=== PATIENT | female | born 1960 | race Caucasian/White ===

== ENCOUNTER → 2019-09-03 11:28 | Outpatient (CLI) | payer BC, SELFPAY ==
--- NOTE | ~2019-09-03 | MM_ITS ---
EXAMINATION: MM screening [facility] BI w nikos HISTORY: Screening mammogram TECHNIQUE: Craniocaudal and mediolateral oblique 3-D tomosynthesis images were obtained and synthetic 2-D images were generated. CAD analysis was submitted and interpreted. COMPARISON: Comparison to multiple prior studies sequentially, with oldest reviewed study dated 06/2015. BREAST PARENCHYMAL COMPOSITION: Breast composed of scattered areas of fibroglandular density FINDINGS: There are stable benign breast calcifications. Stable right breast asymmetry. There is no e vidence of suspicious mass, calcification, or architectural distortion to suggest malignancy in eithe r breast. There has been no suspicious interval change. IMPRESSION: 1. No mammographic evidence of malignancy. 2. Recommend routine screening mammography in one year. BI-RADS Category 2: Benign finding(s). Reviewed, dictated and finalized at location D.
== END ==
PROVIDERS: PCP Nurse Practitioner Adult Health; Visit Provider Obstetrics & Gynecology
DX: Z12.31 Encounter for screening mammogram for malignant neoplasm of breast (principal)
CPT/HCPCS: 77063; 77067

== ENCOUNTER → 2020-02-13 08:26 | Outpatient (CLI) | payer BC, SELFPAY ==
--- NOTE | ~2020-02-13 | MR_ITS ---
EXAMINATION: MR knee LT wo con DATE: 02/13/2020 09:22 INDICATION: Primary osteoarthritis presenting with worsening left knee pain and difficulty walking. TECHNIQUE: Magnetic resonance imaging (MRI) of the left knee was performed without intravenous contra st. Sequences included coronal PD-weighted FSE, coronal PD-weighted FS FSE, sagittal T2-weighted FSE , sagittal PD-weighted FS FSE and axial PD weighted fat saturated FSE. COMPARISON: Left knee radiographs dated 02/02/2020 FINDINGS: Medial compartment: Mild increased intrasubstance signal in the body and posterior horn of the medial meniscus which does not contact the articular surface consistent with mucoid degeneration without discrete tear. Partial -thickness cartilage loss with fissuring and chondral surface irregularity along the anterior to cent ral weightbearing medial femoral condyle and to a lesser degree on the medial tibial plateau. Small r egion of cortical irregularity and minimal subarticular edema at the central weightbearing medial fem oral condyle. There is cystic change at the anterolateral margin of the medial tibial plateau located near the root to the anterior horn of the medial meniscus. Lateral compartment: Lateral meniscus is normal. Articular cartilage is normal. Patellofemoral compartment: Small region of chondral fissuring with minimal underlying cortical irregularity and subarticular angelo ma at the inferolateral margin of the medial trochlea. Deep chondral ulceration with minimal subartic ular edema along the cephalad half of the medial patellar facet and apical ridge. Less severe partial thickness cartilage loss and subtle surface irregularity at the medial side of the lateral facet. Ligaments and tendons: Anterior and posterior cruciate ligaments are normal. The medial collateral ligament and fibular chidi ateral ligament complex are normal. The extensor mechanism is normal. The visualized medial and later al hamstring tendons as well as the iliotibial band are normal. Fluid: Physiologic amount of fluid in the joint space. No loose osteochondral bodies identified. Tiny Raines' s cyst. Osseous/other: Bone alignment is normal. No fracture or pathologic marrow replacing process. IMPRESSION: 1. Mild osteoarthritis with small regions of moderate to high-grade chondromalacia in the medial and patellofemoral compartments. 2. Tiny Raines's cyst. Reviewed, dictated and finalized at location A. IMPRESSION: 1. Mild osteoarthritis with small regions of moderate to high-grade chondromala heri in the medial and patellofemoral compartments. 2. Tiny Raines's cyst.
== END ==
PROVIDERS: PCP Nurse Practitioner Adult Health; Visit Provider Orthopaedic Surgery
DX: M17.12 Unilateral primary osteoarthritis, left knee (principal)
CPT/HCPCS: 73721

== ENCOUNTER → 2020-09-08 10:18 | Outpatient (CLI) | payer BC, SELFPAY ==
--- NOTE | ~2020-09-08 | MM_ITS ---
EXAMINATION: MM screening maddie BI w nikos HISTORY: Screening mammogram TECHNIQUE: Craniocaudal and mediolateral oblique 3-D tomosynthesis images were obtained and synthetic 2-D images were generated. CAD analysis was submitted and interpreted. COMPARISON: 09/03/2019, 08/05/2018, 08/02/2017 BREAST PARENCHYMAL COMPOSITION: There are scattered areas of fibroglandular density. FINDINGS: Scattered benign-appearing calcifications are present. There is no evidence of suspicious m ass, calcification, or architectural distortion to suggest malignancy in either breast. There has bee n no suspicious interval change. IMPRESSION: 1. No mammographic evidence of malignancy. 2. Recommend routine screening mammography in one year. BI-RADS Category 2: Benign finding(s). Reviewed, dictated and finalized at location D.
== END ==
PROVIDERS: Visit Provider Obstetrics & Gynecology
DX: Z12.31 Encounter for screening mammogram for malignant neoplasm of breast (principal)
CPT/HCPCS: 77063; 77067

== ENCOUNTER → 2021-09-12 10:31 | Outpatient (CLI) | payer BC, SELFPAY ==
--- NOTE | ~2021-09-12 | MM_ITS ---
EXAMINATION: MM screening [facility] BI w nikos HISTORY: Screening mammogram TECHNIQUE: Craniocaudal and mediolateral oblique 3-D tomosynthesis images were obtained and synthetic 2-D images were generated. CAD analysis was submitted and interpreted. COMPARISON: 09/08/2020, 09/03/2019, 08/05/2018 BREAST PARENCHYMAL COMPOSITION: There are scattered areas of fibroglandular density. FINDINGS: Scattered benign-appearing calcifications are present. There is no suspicious mass, calcifi cation, or architectural distortion to suggest malignancy in either breast. There has been no suspici ous interval change. IMPRESSION: 1. No mammographic evidence of malignancy. 2. Recommend routine screening mammography in one year. BI-RADS Category 2: Benign finding(s). Reviewed, dictated and finalized at location A.
== END ==
PROVIDERS: PCP Nurse Practitioner Adult Health; Visit Provider Obstetrics & Gynecology
DX: Z12.31 Encounter for screening mammogram for malignant neoplasm of breast (principal)
CPT/HCPCS: 77063; 77067

== ENCOUNTER → 2022-10-07 08:35 | Outpatient (CLI) | payer BC, SELFPAY ==
--- NOTE | ~2022-10-07 | MM_ITS ---
EXAMINATION: MM screening maddie BI w nikos HISTORY: Screening mammogram TECHNIQUE: Craniocaudal and mediolateral oblique 3-D tomosynthesis images were obtained and synthetic 2-D images were generated. CAD analysis was submitted and interpreted. COMPARISON: 09/12/2021, 09/04/2020, 09/03/2019 bilateral screening mammogram examinations BREAST PARENCHYMAL COMPOSITION: There are scattered areas of fibroglandular density. FINDINGS: Again noted are scattered benign calcifications. There is no evidence of suspicious mass, c alcification, or architectural distortion to suggest malignancy in either breast. There has been no s uspicious interval change. IMPRESSION: 1. No mammographic evidence of malignancy. 2. Recommend routine screening mammography in one year. BI-RADS Category 2: Benign finding(s)..... Reviewed, dictated and finalized at location A.
== END ==
PROVIDERS: PCP Obstetrics & Gynecology; Visit Provider Obstetrics & Gynecology
DX: Z12.31 Encounter for screening mammogram for malignant neoplasm of breast (principal)
CPT/HCPCS: 77063; 77067

== ENCOUNTER 2023-03-21 11:08 | Emergency (ER) | payer BC, SELFPAY ==
[2023-03-21] VITALS (33 sets, daily range): BP systolic 127–161; BP diastolic 60–98; PULSE 67–90; RESP 15–26; TEMP 36.8; O2SAT 97–100
--- NOTE | ~2023-03-21 | CT_ITS ---
Noncontrast CT scan of the cervical spine Technique: Multiple contiguous axial [address] images of the cervical spine were obtained and rec onstructed in 2D sagittal and coronal planes on the acquisition scanner. Dose reduction technique was used on this scan by utilizing automated exposure control, adjustment of the mA and/or kV according to patient size. The dose-length product (DLP) was 214.23 mGy-cm. Clinical History: Pain Findings: No fracture identified. There is minimal grade 1 anterolisthesis of C5 over C6.. There is s cattered facet joint degenerative changes, worse in the right facet joint at C5-C6. Intervertebral di sc spaces are relatively well-preserved. No prevertebral soft tissue swelling. Impression: No acute fracture. Minimal grade 1 anterolisthesis of C5 over C6. Mild degenerative spondylosis, as above. Reviewed, dictated and finalized at [facility]. Impression: No acute fracture. Minimal grade 1 anterolisthesis of C5 over C6. Mild degenerative spondylosis, as above.
--- NOTE | ~2023-03-21 | CT_ITS ---
Non-contrast Head CT History: Head injury Technique: Axial non-contrast imaging of the brain was performed. Dose reduction technique was used on this scan by utilizing automated exposure control and iterative reconstruction technique. The dose -length product (DLP) was 605.33 mGy-cm. Findings: There is no evidence of intracranial hemorrhage, mass lesion, or acute infarct. Brain par enchyma appears normal. The ventricles and subarachnoid spaces are normal in size. The calvarium ap pears normal. The visualized paranasal sinuses and mastoid air cells are clear. There is soft tissue swelling/hematoma at the high right parietal scalp. Impression: No intracranial abnormality. Soft tissue swelling/hematoma at the high right parietal scalp. Reviewed, dictated and finalized at [facility]. Impression: No intracranial abnormality. Soft tissue swelling/hematoma at the high right parietal scalp.
--- NOTE | ~2023-03-21 | XR_ITS ---
Portable chest x-ray Comparison: 07/23/2011 Clinical History: Syncope Findings: Lungs are clear, without focal consolidation or pleural effusion. Cardiomediastinal silho uette is stable. Bones and soft tissues are unremarkable. Impression: Normal chest. Reviewed, dictated and finalized at location . Impression: Normal chest.
--- NOTE | ~2023-03-21 | CT_ITS ---
EXAMINATION: CT thoracic lumbar wo con DATE: 03/21/2023 11:45 INDICATION: Back pain after fall TECHNIQUE: Computed tomography (CT) of the thoracic and lumbar spine was performed without intravenou s contrast. Automated exposure control and iterative reconstruction technique were employed. Exam dos e: 945.46 mGy-cm total exam DLP. COMPARISON: None FINDINGS: Normal alignment of the thoracic and lumbar spine. No thoracic spine fracture is detected. There is mild loss of height and anterior wedging of L3 due to recent comminuted fracture of the L3 v ertebral body with mild depression and concavity of the superior vertebral endplate. No primary lumbar spinal stenosis. No herniated nucleus pulposis is evident. The lumbar nerve root im pingement is identified. IMPRESSION: Recent mild L3 compression fracture No other recent thoracic or lumbar spine fracture is evident Reviewed, dictated and finalized at Location A. Reviewed, dictated and finalized at location B.
--- NOTE | 2023-03-21 11:28 | ECG_ITS ---
Measurements Intervals [place] Rate: 64 P: 27 [place]: 176 QRS: -7 QRSD: 86 T: 16 QT: 392 QTc: 407 Interpretive Statements SINUS RHYTHM NONSPECIFIC ST & T-WAVE ABNORMALITY NO PREVIOUS ECG AVAILABLE FOR COMPARISON Electronically Signed On 03-21-2023 19:16:18 CDT by Karo Rubio M.D.
--- NOTE | 2023-03-21 11:35 | ED.HEATRA ---
HPI - Head Injury General Chief complaint: Head Injury Stated complaint: fall Time Seen by Provider: 03/21/23 11:12 History of Present Illness HPI Narrative: This is a 63-year-old female, with history of hypertension and hyperlipidemia, brought in by EMS after a fall. The patient was playing pickle ball, when she woke up on the ground unsure of what may have happened. EMS reports the patient reportedly tripped and struck her head on a concrete wall. EMS reports bystanders at the scene noted the patient appeared confused. The patient does not recall the event and complains of patients of mid back pain, described as sharp, rated 7/10. Related Data Home Medications Medication Instructions Recorded Confirmed atorvastatin 10 mg tablet 10 mg PO DAILY 02/02/20 02/02/20 nebivolol 2.5 mg tablet (Bystolic) 2.5 mg PO DAILY 02/02/20 02/02/20 Allergies Allergy/AdvReac Type Severity Reaction Status Date / Time erythromycin base Allergy Unknown Nausea Verified 03/21/23 11:16 Review of Systems Review of Systems: CONSTITUTIONAL: Denies fever, chills, or sweats. CARDIOVASCULAR: Denies chest pain, palpitations, or edema. RESPIRATORY: Denies cough or dyspnea. GASTROINTESTINAL: Denies abdominal pain, nausea, vomiting, or diarrhea. GENITOURINARY: Denies dysuria or hematuria. SKIN: Denies rash or itching. MUSCULOSKELETAL: Backache denies back pain, joint pain, or myalgia. NEUROLOGIC: Difficulty with memory denies headache, numbness, dizziness, or weakness. PSYCHIATRIC: Denies anxiety or depression. PMFSH Past Medical History Medical History (Updated 03/22/23 @ 00:00 by Background Daemon) Arthritis of left knee Hyperlipidemia Hypertension Family History Family History Other Family history of arthritis Family history of cardiovascular disease Family history of irritable bowel syndrome Family history of malignant neoplasm Social History Social History Smoking status: Never smoker Alcohol intake: never Exam Narrative: GENERAL: Well-developed, well-nourished, and in no acute distress. HEAD: Normocephalic, a 6 cm laceration is noted to the right occipital parietal scalp. EYES: PERRLA and EOMI. ENT: Nares clear, no rhinorrhea or epistaxis. Mucous membranes moist. Oropharynx without tonsillar hypertrophy exudate or other lesions. Bilateral TMs pearly miller nonbulging NECK: Supple. No midline spine tenderness to palpation, no step-off or crepitus CHEST: Clear to auscultation. No respiratory distress. No wheezes rales or rhonchi HEART: Regular rate and rhythm. No murmur heard. Normal peripheral pulses. ABDOMEN: Soft, nontender, nondistended, normal active bowel sounds. BACK: Midline spine tenderness to palpation at approximately T10, no step-off or crepitus EXTREMITIES: Normal range of motion. No edema. SKIN: Warm, dry, no rash. NEURO: Alert and oriented x3. Moving all 4 limbs purposefully. PSYCH: Normal mood and affect. Course Course Emergency Course: 14:00 - CT head negative for intracranial hemorrhage or fracture. CT cervical spine negative for fracture. CT lumbar spine demonstrates a compression fracture of L3. CBC within normal limits. Chemistries unremarkable. Chest x-ray unremarkable. EKG not concerning for arrhythmia or ischemia. I discussed the findings with neurosurgeon, Dr. Munroe who agrees with placement of a lumbar spine brace and recommends outpatient follow-up in 6 weeks. 17:03 - Lumbar spine brace placed. Will discharge with neurosurgery follow-up. Discussed return and emergency precautions including signs/symptoms of cauda equina. The patient voiced understanding and is comfortable with plan. All questions answered to her satisfaction. Vital Signs Vital signs: Vital Signs Temperature 98.2 F 03/21/23 11:11 Pulse Rate 82 03/21/23 11:11 Respiratory Rate 18 03/21/23
[2023-03-21] MEDS: SODIUM CHLORIDE 0.9% IV 1,000 ML 999 ML IV CONT ×2 (11:58→14:09)
[2023-03-21] MEDS: oxyCODONE/ACETAMINOPHEN (*CRX) 5-325 MG TABLET 1 TABLET PO (11:58)
[2023-03-21] MEDS: TETANUS,DIPHTHERIA,AC PERTUSSIS ADULT (0.5 ML) BOOSTRIX IM (11:58)
[2023-03-21 12:13] LABS: Glucose Point of Care 87 mg/dl (65-105)
[2023-03-21 12:16] LABS: Basophils Absolute Auto 0.1 K/mm3 (0.0-0.1); Basophils Percent Auto 0.7 % (0.2-1.2); Eosinophils Absolute Auto 0.1 K/mm3 (0-0.3); Eosinophils Percent Auto 0.9 % (0-4.4); Hematocrit 39.7 % (37.0-47.0); Hemoglobin 12.7 g/dL (12.0-15.0); Immature Granulocyte Absolute 0.16 K/mm3 (0.00-0.031); Immature Granulocyte Percent A 1.8 % (0-0.5); Lymphocytes Absolute Auto 1.65 K/mm3 (0.9-3.2); Lymphocytes Percent Auto 18.1 % (18.3-44.2); Mean Corpuscular Hemoglobin 28.3 pg (26-34); Mean Corpuscular Volume 88.6 fl (80-100); Mean Platelet Volume 9.4 fl (7.4-10.4); Monocytes Absolute Auto 0.7 K/mm3 (0.1-0.6); Neutrophils Absolute Auto 6.4 K/mm3 (1.3-6.7); Neutrophils Percent Auto 70.5 % (45.5-73.1); Platelet Count Result 228 k/mm3 (150-375); Red Blood Count 4.48 M/mm3 (4.2-5.4); Red Cell Distribution Width 13.4 % (11.5-14.5); White Blood Count 9.1 K/mm3 (4.5-10.0)
[2023-03-21 12:31] LABS: INR 0.9; Prothrombin Time 12.7 Seconds (11.1-14.7)
[2023-03-21 12:34] LABS: Alanine Aminotransferase 21 U/L (6-35); Alkaline Phosphatase 94 U/L (38-126); Anion Gap 8 mmol/L (8-16); Aspartate Amino Transferase 31 U/L (14-36); Bilirubin,Total 0.6 mg/dL (0.2-1.3); Blood Urea Nitrogen 15 mg/dL (7-17); Calcium 8.5 mg/dL (8.4-10.2); Carbon Dioxide 21 mmol/L (22-30); Chloride 109 mmol/L (98-107); Estimated CRCL calculation 55 ml/min; Estimated Glomerular Filt Rate > 60; Glucose 105 mg/dL (65-110); Magnesium 1.7 mg/dL (1.6-2.3); Sodium 138 mmol/L (137-145)
[2023-03-21] MEDS: MORPHINE SULFATE (*CRX) 4 MG/ML INJ IV PUSH (13:42)
--- NOTE | 2023-03-21 16:41 | PC.NURSE ---
Pt being fitted for back brace at bedside.
== END 2023-03-21 17:25 | disposition home or self-care (01) ==
PROVIDERS: Emergency Provider Preventive Medicine Aerospace Medicine; PCP Obstetrics & Gynecology
DX: S06.0X0A Concussion without loss of consciousness, initial encounter (principal); S01.01XA Laceration without foreign body of scalp, initial encounter; S32.030A Wedge compression fracture of third lumbar vertebra, initial encounter for closed fracture; Z23 Encounter for immunization; E78.5 Hyperlipidemia, unspecified; I10 Essential (primary) hypertension; M17.12 Unilateral primary osteoarthritis, left knee; R94.31 Abnormal electrocardiogram [ECG] [EKG]; W18.30XA Fall on same level, unspecified, initial encounter; Y93.73 Activity, racquet and hand sports
CPT/HCPCS: 12002; 36415; 70450; 71045; 72125; 72128; 72131; 80053; 82948; 83735; 85025; 85610; 90471; 90715; 93005; 96361; 96374; 99284; A9270; J2270; J7030

== ENCOUNTER → 2023-04-30 08:59 | Outpatient (CLI) | payer BC, SELFPAY ==
--- NOTE | ~2023-04-30 | XR_ITS ---
XR lumbar spine 2-3V DATE: 04/30/2023 09:35 INDICATION: Low back pain TECHNIQUE: AP, lateral, coned lateral lumbosacral views COMPARISON: 03/21/2023 CT thoracic and lumbar spine FINDINGS: There is a transitional first sacral vertebra. There is mild compression fracture deformity of L2 with mildly increased loss of height and anterior wedging of this vertebra since 03/21/2023. There is mild levoscoliosis of the lower thoracic and lumbar spine. There is osteopenia. No other fracture or bone destruction is detected. Included lower thoracic and lumbar pedicles are in tact. The sacroiliac joints are intact. IMPRESSION: Mildly increased loss of height and anterior wedging of L2 compression fracture since 03/21/2023 Reviewed, dictated and finalized at location B. R ASSEMBLER IMPRESSION: Mildly increased loss of height and anterior wedging of L2 compress ion fracture since 03/21/2023
== END ==
PROVIDERS: PCP Neurological Surgery; Visit Provider Neurological Surgery
DX: S32.020D Wedge compression fracture of second lumbar vertebra, subsequent encounter for fracture with routine healing (principal); X58.XXXD Exposure to other specified factors, subsequent encounter
CPT/HCPCS: 72100

== ENCOUNTER 2023-05-24 14:04 | Outpatient (CLI) | payer BC, SELFPAY ==
--- NOTE | ~2023-05-24 | DEXA_ITS ---
Bone Density Report Name: CHICO WILLIS Age: 63 Sex: Female Ethnicity: White Date of : 1960 Indication: postmenopausal; screening for osteoporosis; height loss; Referring Provider: THERESA LARA Study: Bone densitometry was performed. Exam Date: May 24, 2023 Accession number: [id number] Bone Density: Region BMD T-score Z-score Classification AP Spine(L1-L4) 0.801 -2.2 -0.5 Osteopenia Femoral Neck (Left) 0.674 -1.6 -0.1 Osteopenia Total Hip (Left) 0.877 -0.5 0.7 Normal Femoral Neck (Right) 0.690 -1.4 0.1 Osteopenia Total Hip (Right) 0.885 -0.5 0.8 Normal Femoral Neck Mean 0.682 -1.5 0.0 Osteopenia Total Hip Mean 0.881 -0.5 0.7 Normal World Health Organization criteria for BMD impression classify patients as: Normal (T-score at or above -1.0), Osteopenia (T-score between -1.0 and -2.5), or Osteoporosis (T-score at or below -2.5). 10-year Fracture Risk(1): Major Osteoporotic Fracture 8.7% Hip Fracture 0.9% Reported Risk Factors: [place] (), Neck BMD=0.674, BMI=29.9 (1) FRAX(R) Version 3.08. Fracture probability calculated for an untreated patient. Fracture probability may be lower if the patient has received treatment. Clinical Information Provided by Patient: Has used the following medications: HRT (i.e. estrogen/hormone therapy), Vitamin D, multi Patient maximum height was 61.5 Menopause Age: 53 No regular weight bearing exercise Onset of menses at age 11 Number of children 2 Impression: The patient has low bone mass, based on the Total Spine T-score. Discussion: BONE DENSITY IS LOW AT ONE OR MORE SKELETAL SITES. This patient's lowest T-score is low at one or more skeletal sites. It meets the World Health Organization's (WHO) criteria for ?low bone mass? (T-score between -1.0 and -2.5). The patient's 10-year risk of fracture as calculated by FRAX is less than the threshold where pharmacological therapy is recommended by the National Osteoporosis Foundation (NOF). However, all treatment decisions require clinical judgment and consideration of individual patient factors, including patient preferences, comorbidities, previous drug use, risk factors not captured in the FRAX model (e.g., frailty, falls, vitamin D deficiency, increased bone turnover, interval significant decline in bone density) and possible under or overestimation of fracture risk by FRAX. The patient should follow a healthful lifestyle (good nutrition with adequate calcium and vitamin D, and appropriate weight-bearing exercise). Follow-Up: Consider repeating this study in 2 to 3 years to reassess this patient's status, or sooner if there is some new clinical indication. Reported by: Dr. Isaak Maciel on 05/24/2023 2:37:00 PM.
== END 2023-05-24 14:05 | disposition home or self-care (01) ==
LOC: CHSIMG 14:07
PROVIDERS: PCP Nurse Practitioner Family; Visit Provider Physician Assistant
DX: Z78.0 Asymptomatic menopausal state (principal); M85.89 Other specified disorders of bone density and structure, multiple sites
CPT/HCPCS: 77080

== ENCOUNTER → 2023-06-19 09:34 | Outpatient (CLI) | payer BC, SELFPAY ==
--- NOTE | ~2023-06-19 | XR_ITS ---
EXAM: XR lumbar spine 2-3V DATE: 06/19/2023 10:12 HISTORY: S32.000G - Wedge compression fracture of unspecified lumb... . COMPARISON: 04/30/2023. FINDINGS: Transitional first sacral vertebra. 5 nonrib-bearing lumbar-type vertebral bodies. Pedicles intact. Normal vertebral body alignment. Stable mild superior endplate deformity and height loss at L2. Decreased osseous mineralization. Mild multilevel degenerative disc disease and facet arthropathy . No fracture or dislocation. IMPRESSION: Stable L2 compression fracture. Reviewed, dictated and finalized at location K. FEEDER
== END ==
PROVIDERS: PCP Physician Assistant; Visit Provider Physician Assistant
DX: S32.000D Wedge compression fracture of unspecified lumbar vertebra, subsequent encounter for fracture with routine healing (principal); X58.XXXD Exposure to other specified factors, subsequent encounter
CPT/HCPCS: 72100

== ENCOUNTER 2023-10-09 10:37 | Outpatient (CLI) | payer BC, SELFPAY ==
--- NOTE | ~2023-10-09 | MM_ITS ---
EXAMINATION: MM screening [facility] BI w nikos HISTORY: Screening mammogram TECHNIQUE: Craniocaudal and mediolateral oblique 3-D tomosynthesis images were obtained and synthetic 2-D images were generated. CAD analysis was submitted and interpreted. COMPARISON: Serial mammograms dating back to 09/03/2019 BREAST PARENCHYMAL COMPOSITION: There are scattered areas of fibroglandular density. FINDINGS: There is suggestion of architectural distortion in the medial subareolar area of the right breast. Diagnostic right mammogram and right breast ultrasound examination are recommended. Otherwise no suspicious mass, architectural distortion, malignant calcification, skin thickening or r etraction or significant new or developing density of either breast is detected. IMPRESSION: 1. Possible architectural distortion, medial subareolar right breast 2. Diagnostic right mammogram and right breast ultrasound examination are recommended BI-RADS Category 0: Incomplete: Needs additional imaging evaluation. Reviewed, dictated and finalized at location A. IMPRESSION: 1. Possible architectural distortion, medial subareolar right breast 2. Diagnostic right mammogram and right breast ultrasound examination are recom mended BI-RADS Category 0: Incomplete: Needs additional imaging evaluation.
== END 2023-10-09 10:38 ==
PROVIDERS: PCP Obstetrics & Gynecology; Visit Provider Obstetrics & Gynecology
DX: Z12.31 Encounter for screening mammogram for malignant neoplasm of breast (principal); R92.8 Other abnormal and inconclusive findings on diagnostic imaging of breast
CPT/HCPCS: 77063; 77067

== ENCOUNTER 2023-11-08 10:55 | Outpatient (CLI) | payer BC, SELFPAY ==
--- NOTE | ~2023-11-08 | MMUS_ITS ---
EXAMINATION: MM diagnostic maddie RT w nikos, US breast RT limited HISTORY: Follow-up right breast asymmetries TECHNIQUE: Additional 3-D tomosynthesis images of the right breast were performed and synthetic 2-D i mages were generated. CAD analysis was submitted and interpreted. High resolution Limited right breas t ultrasound was performed. COMPARISON: Comparison to multiple prior studies sequentially, with oldest reviewed study dated 09/02. BREAST PARENCHYMAL COMPOSITION: Not dense: There are scattered areas of fibroglandular density. FINDINGS: MAMMOGRAPHIC FINDINGS: There are no suspicious masses, calcifications or architectural distortion in the right breast to sug gest malignancy. ULTRASOUND: Limited right breast ultrasound: Mildly prominent ducts are present in the periareolar location. No s uspicious masses to suggest malignancy. IMPRESSION: 1. No evidence for malignancy in the right breast. 2. Routine yearly screening mammogram and regular clinical breast examination are recommended. BI-RADS Category 1: Negative Reviewed, dictated and finalized at location A. IMPRESSION: 1. No evidence for malignancy in the right breast. 2. Routine yearly screening mammogram and regular clinical breast examination a re recommended. BI-RADS Category 1: Negative
== END 2023-11-08 10:56 | disposition home or self-care (01) ==
PROVIDERS: PCP Obstetrics & Gynecology; Visit Provider Obstetrics & Gynecology
DX: R92.8 Other abnormal and inconclusive findings on diagnostic imaging of breast (principal)
CPT/HCPCS: 76642; 77061; 77065; G0279

== ENCOUNTER 2024-04-22 01:02 | Day surgery (SDC) | payer BC, SELFPAY ==
[2024-04-09 15:19] VITALS: BMI 29.3
--- NOTE | 2024-04-22 07:24 | WPDANESEPPF ---
Anes - Initial Pre Proc Eval Procedure: Operation Date: 04/22/24 08:30 Proposed Procedures p Screening Colonoscopy - Cosmo Mistry MD Date/Time: 04/22/24 07:24 Surgeon: Cosmo Mistry MD Pre Op Diagnosis: neoplasm screening Patient Data Age: 64 Gender: F Height: 1.55 m Weight: 70.45 kg Allergies Allergy/AdvReac Type Severity Reaction Status Date / Time erythromycin base Allergy Unknown Nausea Verified 04/22/24 07:24 Home Medications Medication Instructions Recorded Confirmed Type cholecalciferol (vitamin D3) 25 5,000 unit PO DAILY 07/16/23 04/22/24 History mcg (1,000 unit) capsule atorvastatin 10 mg tablet 5 mg PO .qod #23 tabs 12/10/23 04/22/24 Rx nebivolol 5 mg tablet 5 mg PO DAILY #90 tabs 12/10/23 04/22/24 Rx Patient hx anesthesia problems: none Family hx anesthesia problems: none Results Review: All pre-operative results and documents have been reviewed as part of the pre-operative evaluation. [facility] Past Medical History Medical History Anemia Arthritis of left knee BMI 29.0-29.9,adult Dizziness Encounter to establish care Hayfever Hyperlipidemia Hypertension Osteopenia Pain of left heel PONV (postoperative nausea and vomiting) Family History Family History Father Alcoholism Skin cancer Hypertension Heart problem Mother Ovarian cancer Other Family history of arthritis Family history of cardiovascular disease Family history of irritable bowel syndrome Family history of malignant neoplasm Social History Social History Smoking status: Never smoker Alcohol intake: never Substance use: never Substance use type: does not use Do You Feel Safe in your Home?: Yes Lack of Transportation: No Lack of Food: Never True Current Housing: I Have Housing Concerned About Future Housing: No Difficulty Paying Gas/Electric Bills: No Difficulty Paying for Meds: No Currently Unemployed: No Education: Bachelor's Degree Difficulty w/ Childcare or Family Care: No Living arrangements: with family Gender identity (if verbalized by the patient): Female Sexual Orientation (if Verbalized by the Patient): Straight or Heterosexual Spiritual care concerns: No Anes - Eval Final PreProcedure Day of Procedure 04/22/24 07:24 Patient weight: overweight Heart: regular rate and rhythm Lungs: clear to auscultation Airway: Mallampati scale class II Neurological: alert and oriented Last oral intake: >/= 8 hours ASA classification: II Emergent: no Anesthetic plan: proceed Anesthesia type and monitoring: general GIVS and standard monitoring Results Review: All pre-operative results and documents have been reviewed as part of the pre-operative evaluation. Informed Consent: The patient's anesthetic plan and its attendant risks and benefits were discussed with the patient/family/POA. Questions were solicited and answers provided to the satisfaction of the patient/family/POA.
[2024-04-22 07:25] VITALS: BP 123/88; PULSE 93; RESP 18; TEMP 36.3; O2SAT 97
[2024-04-22] MEDS: LACTATED RINGERS 1,000 ML 150 ML IV CONT (07:44)
--- NOTE | 2024-04-22 08:31 | PM.HPGS ---
History of Present Illness History of Present Illness Consent: Risks, benefits, and alternatives have been discussed and questions answered. Patient agrees to proceed with procedure. Chief complaint: neoplasm screening Narrative: Jennyfer Austin is a 64 year old female here for screening colonoscopy, last one 10 years ago Review of Systems Review of Systems: All systems reviewed & are unremarkable except as noted in HPI and below PMFSH Past Medical History Medical History (Updated 04/22/24 @ 08:32 by Cosmo Mistry MD) Anemia Arthritis of left knee BMI 29.0-29.9,adult Colon cancer screening Dizziness Encounter to establish care Hayfever Hyperlipidemia Hypertension Osteopenia Pain of left heel PONV (postoperative nausea and vomiting) Family History Family History Father Alcoholism Skin cancer Hypertension Heart problem Mother Ovarian cancer Other Family history of arthritis Family history of cardiovascular disease Family history of irritable bowel syndrome Family history of malignant neoplasm Social History Social History Smoking status: Never smoker Alcohol intake: never Substance use: never Substance use type: does not use Do You Feel Safe in your Home?: Yes Lack of Transportation: No Lack of Food: Never True Current Housing: I Have Housing Concerned About Future Housing: No Difficulty Paying Gas/Electric Bills: No Difficulty Paying for Meds: No Currently Unemployed: No Education: Bachelor's Degree Difficulty w/ Childcare or Family Care: No Living arrangements: with family Gender identity (if verbalized by the patient): Female Sexual Orientation (if Verbalized by the Patient): Straight or Heterosexual Spiritual care concerns: No Meds Home Medications and Allergies Home Medications Medication Instructions Recorded Confirmed Type cholecalciferol (vitamin D3) 25 5,000 unit PO DAILY 07/16/23 04/22/24 History mcg (1,000 unit) capsule atorvastatin 10 mg tablet 5 mg PO .qod #23 tabs 12/10/23 04/22/24 Rx nebivolol 5 mg tablet 5 mg PO DAILY #90 tabs 12/10/23 04/22/24 Rx Allergies Allergy/AdvReac Type Severity Reaction Status Date / Time erythromycin base Allergy Unknown Nausea Verified 04/22/24 07:24 Vital Signs Vital Signs - 24 hr 04/22/24 07:25 Temperature 97.3 F L Pulse Rate 93 Respiratory Rate 18 Blood Pressure 123/88 Pulse Oximetry 97 Oxygen Delivery Room Air Exam Const: General: comfortable and no acute distress HENMT: Face/Nose/Sinus: Normal nares present Eyes: General: appearance normal, both eyes and all related structures Neck: Neck: no JVD Resp: Auscultation: clear to auscultation bilaterally Cardio: Rate: regular rate Rhythm: regular rhythm GI: Inspection: non-distended GI Palp: Yes Soft to palpation Skin: General skin exam: normal color Neuro: General: gait normal Speech: normal speech Extrem: General: normal to inspection Psych: Mental Status: mental status grossly normal Assessment and Plan Assessment and plan (1) Colon cancer screening: Code(s): Z12.11 - Encounter for screening for malignant neoplasm of colon Status: Acute Assessment and Plan: colonoscopy
[2024-04-22 08:49] VITALS: BP 111/56; PULSE 70; RESP 18; O2SAT 97
[2024-04-22 08:55] VITALS: BP 125/60; PULSE 63; RESP 22; O2SAT 97
[2024-04-22 09:09] VITALS: BP 118/66; PULSE 61; RESP 18; O2SAT 97
== END 2024-04-22 09:18 | disposition home or self-care (01) ==
PROVIDERS: PCP Nurse Practitioner Family; Visit Provider Internal Medicine Gastroenterology
PROC: 0DJD8ZZ Inspection of Lower Intestinal Tract, Via Natural or Artificial Opening Endoscopic (ICD-10-PCS; CPT 45378; principal; 2024-04-22 08:30)
DX: Z12.11 Encounter for screening for malignant neoplasm of colon (principal); K64.8 Other hemorrhoids; D64.9 Anemia, unspecified; M17.12 Unilateral primary osteoarthritis, left knee; E78.5 Hyperlipidemia, unspecified; I10 Essential (primary) hypertension; M85.88 Other specified disorders of bone density and structure, other site; Z84.0 Family history of diseases of the skin and subcutaneous tissue; Z80.41 Family history of malignant neoplasm of ovary; Z82.49 Family history of ischemic heart disease and other diseases of the circulatory system
CPT/HCPCS: 45378; J2003; J2704; J7120

== ENCOUNTER 2024-12-03 13:17 | Outpatient (CLI) | payer BC, SELFPAY ==
--- NOTE | ~2024-12-03 | MM_ITS ---
EXAMINATION: MM screening maddie BI w [facility] HISTORY: Screening TECHNIQUE: Craniocaudal and mediolateral oblique 3-D tomosynthesis images were obtained and synthetic 2-D images were generated. CAD analysis was submitted and interpreted. COMPARISON: Comparison to multiple prior studies sequentially, with oldest reviewed study dated 09/02. BREAST PARENCHYMAL COMPOSITION: Not dense: There are scattered areas of fibroglandular density. FINDINGS: There is no evidence of suspicious mass, calcification, or architectural distortion to sugg est malignancy in either breast. There has been no suspicious interval change. IMPRESSION: 1. No mammographic evidence of malignancy. 2. Recommend routine screening mammography in one year. BI-RADS Category 1: Negative Reviewed, dictated and finalized at location A.
== END 2024-12-03 13:18 | disposition home or self-care (01) ==
PROVIDERS: PCP Nurse Practitioner Family; Visit Provider Obstetrics & Gynecology
DX: Z12.31 Encounter for screening mammogram for malignant neoplasm of breast (principal)
CPT/HCPCS: 77063; 77067

== ENCOUNTER 2025-05-26 08:35 | Outpatient (CLI) | payer BC, SELFPAY ==
--- NOTE | ~2025-05-26 | DEXA_ITS ---
Bone Density Report Name: CHICO WILLIS Age: 65 Sex: Female Ethnicity: White Date of : 1960 Indication: osteopenia; prior fracture; cancer; Referring Provider: VARINDER BELL Study: Bone densitometry was performed. Exam Date: May 26, 2025 Accession number: [id number] Bone Density: Region BMD T-score Z-score Classification AP Spine(L1-L4) 0.805 -2.2 -0.3 Osteopenia Femoral Neck (Left) 0.640 -1.9 -0.3 Osteopenia Total Hip (Left) 0.782 -1.3 0.0 Osteopenia Femoral Neck (Right) 0.705 -1.3 0.3 Osteopenia Total Hip (Right) 0.835 -0.9 0.5 Normal Total Hip Mean 0.808 -1.1 0.3 Osteopenia World Health Organization criteria for BMD impression classify patients as: Normal (T-score at or above -1.0), Osteopenia (T-score between -1.0 and -2.5), or Osteoporosis (T-score at or below -2.5). 10-year Fracture Risk: FRAX not reported because: Prior hip or vertebral fracture Previous Exams: -- Region Exam Age BMD T-score BMD Change BMD Change Date g/cm2 vs Baseline vs Previous -- AP Spine (L1-L4) 05/26/2025 65 0.805 -2.2 -11.9%# 0.6% 05/24/2023 63 0.801 -2.2 -12.4%# 0.4%# 12/31/2018 58 0.797 -2.3 -12.8%* -4.6%* 12/12/2016 56 0.836 -1.9 -8.6%* -8.6%* 06/10/2008 48 0.914 -1.2 Total Hip(Left) 05/26/2025 65 0.782 -1.3 -16.8%# -10.8%* 05/24/2023 63 0.877 -0.5 -6.7%# 2.7%# 12/31/2018 58 0.854 -0.7 -9.2%* -4.0%* 12/12/2016 56 0.890 -0.4 -5.4%* -5.4%* 06/10/2008 48 0.940 0.0 Total Hip(Right) 05/26/2025 65 0.835 -0.9 -13.6%# -5.7%* 05/24/2023 63 0.885 -0.5 -8.3%# 1.1%# 12/31/2018 58 0.875 -0.5 -9.4%* -6.7%* 12/12/2016 56 0.938 0.0 -2.8%* -2.8%* 06/10/2008 48 0.966 0.2 -- *Denotes significance at 95% confidence level, LSC for AP Spine = 0.022 g/cm2, LSC for Total Hip = 0.027 g/cm2 # Denotes dissimilar scan types or analysis methods Clinical Information Provided by Patient: Have had a previous hip or vertebral fracture Has had a low trauma fracture Has used the following medications: Vitamin D Has the following medical conditions: Cancer, basal cell cancer Patient maximum height was 61.5 Menopause Age: 50 Onset of menses at age 10 Number of children 2 Impression: The patient has low bone mass, based on the Total Spine T-score. The patient has risk factors, including: previous fracture. The BMD for the Total Hip(Left) decreased, changing by -10.8% since the last DXA exam. The BMD for the Total Hip(Right) decreased, changing by -5.7% since the last DXA exam. Discussion: INCREASED RISK OF FRACTURE DUE TO HISTORY OF FRACTURE. The patient's previous fracture puts the patient at high risk of a future fracture. In untreated patients, the risk of osteoporotic fracture increases approximately two-fold for each 1.0 SD decrease in T-score. Low bone density is not the only risk factor for fracture; also consider factors such as patient's age, frailty or poor health, risk of falling, risk of injury, previous osteoporotic fracture, family history of osteoporosis, cigarette smoking, low body weight, etc. Not everyone with a low trauma fracture has osteoporosis; osteomalacia and other metabolic bone disorders should also be considered. Patients who have osteoporosis should be evaluated for specific diseases and conditions (secondary causes) that may cause or contribute to bone loss and fracture risk. National Osteoporosis Foundation (NOF) recommends pharmacologic intervention for patients with a prior hip or vertebral fracture regardless of BMD T-score. The patient should follow a healthful lifestyle (good nutrition with adequate calcium and vitamin D, and appropriate weight-bearing exercise). Follow-Up: Consider a repeat BMD and Vertebral Fracture Assessment (VFA) exam in 2 years or sooner if medically necessary, to reassess this patient's status. Reported by: SOPHIE on 05/26/2025 9:17:00 AM. Reviewed, dictated and finalized at location A.
== END 2025-05-26 08:36 | disposition home or self-care (01) ==
LOC: MICIMG 08:36
PROVIDERS: PCP Nurse Practitioner Family; Visit Provider Nurse Practitioner Family
DX: M85.88 Other specified disorders of bone density and structure, other site (principal); M85.852 Other specified disorders of bone density and structure, left thigh; M85.851 Other specified disorders of bone density and structure, right thigh
CPT/HCPCS: 77080